=== PATIENT | female | born 2000 | race American Indian/Alaskan Native ===

== ENCOUNTER 2021-04-05 09:59 | Inpatient (IN) | payer OTHER ==
[2021-04-05] MEDS ORDERED: LOPERAMIDE 2 MG CAP PO PRN (11:00)
[2021-04-05] MEDS ORDERED: TERBUTALINE 1 MG/1 ML INJ SUB-Q PRN (11:00)
[2021-04-05] MEDS ORDERED: METHYLERGONOVINE MALEATE 0.2 MG/ML VIAL IM PRN (11:00)
[2021-04-05] MEDS ORDERED: miSOPROStol 200 MCG TAB PR PRN (11:00)
[2021-04-05] MEDS ORDERED: AMPICILLIN/NS 2 GM/100 ML 2 GM/100 ML BAG IV ONE (11:00)
[2021-04-05] MEDS ORDERED: CARBOPROST TROMETHAMINE 250 MCG/1 ML INJ IM PRN (11:00)
[2021-04-05] MEDS ORDERED: OXYTOCIN DRIP 30 UNITS/500 ML BAG IV SCH ×2 (11:00)
[2021-04-05] MEDS ORDERED: ePHEDrine SULFATE 50 MG/1 ML INJ IV PRN ×2 (11:00→15:53)
[2021-04-05] MEDS ORDERED: MINERAL OIL 30 ML ORAL LIQD PO PRN (11:00)
[2021-04-05] MEDS ORDERED: LIDOCAINE (2%) 20 MG/1 ML VIAL 20 ML MDV INFILTRATI ONE (11:00)
[2021-04-05] MEDS ORDERED: fentaNYL 100 MCG/2 ML INJ IV PRN (11:00)
[2021-04-05] MEDS ORDERED: OXYTOCIN 10 UNIT/1 ML INJ IM PRN (11:00)
--- NOTE | 2021-04-05 11:06 | History and Physical Report ---
History of Present Illness Date of examination: 04/05/21 Date of admission: 04/05/21 Chief complaint: Contractions, leaking of water History of present illness: 20 year old presents to L&D with complaint of contractions and leaking of water since early this morning. Denies vaginal bleeding. Reports active movement. Patient states her due date is April 16, 2021. Patient states she receives care at [facility] but records are not available. She denies any complications during the . labs drawn upon admission since no records are available. Past History Past Medical History: no pertinent history Past Surgical History: no surgical history [employer] History: denies: abnormal PAP smear, chlamydia, gonorrhea, hepatitis B, hepatitis C, herpes, HIV, syphilis, trichomonas Family/Genetic History: diabetes, hypertension, stroke Social history: single, lives with family, full code. denies: smoking, alcohol abuse, prescription drug abuse, IV drug use - Obstetrical History Expected Date of Delivery: 04/16/21 Actual Gestation: 38 Week(s) 3 Day(s) : 1 Para: 0 Hx # Term Pregnancies: 0 Number of Pregnancies: 0 Spontaneous Abortions: 0 Induced : 0 Number of Living Children: 0 Medications and Allergies Allergies Allergy/AdvReac Type Severity Reaction Status Date / Time No Known Allergies Allergy Unverified 03/22/21 19:56 Active Meds: Active Medications Carboprost Tromethamine (Carboprost Tromethamine 250 Mcg/1 Ml Inj) 250 mcg IM ONCE PRN PRN Reason: Uterine Bleeding Ephedrine Sulfate (Ephedrine Sulfate 50 Mg/1 Ml Inj) 10 mg IV Q2M PRN PRN Reason: Hypotension Fentanyl (Fentanyl 100 Mcg/2 Ml Inj) 100 mcg IV Q2H PRN PRN Reason: Pain,Severe (7-10) LABOR PAIN Oxytocin/Sodium Chloride (Pitocin/Ns 30 Unit/500ml) 30 units in 500 mls @ 2 mls/hr IV TITR OLLIE; Protocol Lactated Ringer's (Lactated Ringers) 1,000 mls @ 125 mls/hr IV DIRECT OLLIE Oxytocin/Sodium Chloride (Pitocin/Ns 30 Unit/500ml) 30 units in 500 mls @ 40 mls/hr IV TITR OLLIE; Protocol Ampicillin Sodium (Ampicillin/Ns 2 Gm/100 Ml) 2 gm in 100 mls @ 100 mls/hr IV ONCE ONE; Protocol Stop: 04/05/21 11:59 Ampicillin Sodium (Ampicillin/Ns 1 Gm/50 Ml) 1 gm in 50 mls @ 100 mls/hr IV Q4H OLLIE; Protocol Loperamide HCl (Loperamide 2 Mg Cap) 2 mg PO ONCE PRN PRN Reason: give with Hemabate Methylergonovine Maleate (Methylergonovine Maleate 0.2 Mg/Ml Vial) 0.2 mg IM ONCE PRN PRN Reason: Uterine Bleeding Mineral Oil (Mineral Oil 30 Ml Oral Liqd) 30 ml PO QHS PRN PRN Reason: Constipation Misoprostol (Misoprostol 200 Mcg Tab) 800 mcg [place] ONCE PRN PRN Reason: Uterine Bleeding Oxytocin (Oxytocin 10 Unit/1 Ml Inj) 10 unit IM ONCE PRN PRN Reason: Uterine Bleeding Terbutaline Sulfate (Terbutaline 1 Mg/1 Ml Inj) 0.25 mg SUB-Q ONCE PRN PRN Reason: Hyperstimulation/Hypertonicity Review of Systems All systems: negative (contractions, leaking of water from vagina) - Vital Signs Vital signs: Vital Signs Pulse Pulse Ox 111 H 100 04/05/21 10:24 04/05/21 10:24 Temp Pulse Resp BP Pulse Ox 98.4 F 117 H 18 106/59 100 04/05/21 10:25 04/05/21 11:04 04/05/21 10:25 04/05/21 10:35 04/05/21 11:04 - Physical Exam Abdomen: Positive: normal appearance, soft. Negative: distention, tenderness, guarding, rigidity Genitourinary (Female): Positive: normal external genitalia, normal perenium. Negative: perineal/vulvar lesions Vagina: Positive: other (moderate amount of clear amniotic fluid noted) Uterus: Positive: enlarged. Negative: tender Extremities: Positive: normal - Obstetrical FHR: category 1 Cervical Dilatation: 3 Cervical Effacement Percentage: 80 station: 0 Uterine Contraction Pattern: Irregular Uterine Contraction Intensity: Mild Results Result Diagrams: 04/05/21 11:39 All other labs normal. Assessment and Plan A: at 38 weeks, 3 days gestation. Spontaneous rupture of membranes. Early labor. GBS unknown. No records available. P: Admit. Continuous EFM. GBS prophylaxis. Draw labs. Request records. Augment labor with Pitocin.
[2021-04-05] MEDS: LACTATED RINGERS 1,000 ML IV SCH ×2 (11:20→17:28)
[2021-04-05 11:58] LABS: Hematocrit 27.7 % (30.3-42.9); Hemoglobin 9.5 gm/dl (10.1-14.3); Mean Corpuscular HGB Conc 34 % (30-34); Mean Corpuscular Volume 83 fl (79-97); Platelet Count 202 K/mm3 (140-440); Red Blood Count 3.35 M/mm3 (3.65-5.03); Red Cell Distribution Width 14.3 % (13.2-15.2)
[2021-04-05 12:30] LABS: Hepatitis C Virus Antibody Non-Reactive (NonReactive)
[2021-04-05] MEDS ORDERED: NalbUPHINE 10 MG/1 ML INJ IV PRN (15:53)
[2021-04-05] MEDS ORDERED: ONDANSETRON 4 MG/2 ML INJ IV PRN (15:53)
[2021-04-05] MEDS ORDERED: diphenhydrAMINE 50 MG/ML VIAL IV PRN (15:53)
[2021-04-05] MEDS ORDERED: NALOXONE 2 MG/2 ML INJ IV PRN (15:53)
[2021-04-05] MEDS ORDERED: AMPICILLIN/NS 1 GM/50 ML 1 GM/50 ML BAG IV SCH (16:00)
--- NOTE | 2021-04-05 16:16 | Anesthesia Consultation ---
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
--- NOTE | 2021-04-05 16:17 | Progress Note ---
Labor Epidural - Labor Epidural Start Time: 16:00 Stop Time: 16:16 Performed by:: RO CAR (Mariaa Fraga [facility]) Procedure: Patient is requesting epidural for labor and pain. H&P, labs were reviewed. Patient IDed, H&P reviewed, all questions and concerns were answered, and consent was signed. Timeout was performed at bedside. Patient in sitting position. Sterile prep and drape was performed. 3ml of 1% lidocaine skin wheal at L[3]- L [4]. 18-gauge cristel epidural needle was advanced to loss of resistance with air technique 6cm. Negative CSF negative blood. Epidural catheter advanced to [12] centimeters. [negative] Aspiration [negative] test dose. Sterile dressing applied. Patient tolerated procedure.
[2021-04-05] MEDS ORDERED: LACTATED RINGERS 250 ML IV SOLN IV ONE (16:53)
[2021-04-05] MEDS ORDERED: fentaNYL-BUPIV 2 MCG/ML-0.125% 200 MCG/100 ML BAG EPIDURAL SCH (17:00)
[2021-04-05 18:18] LABS: Bilirubin,Urine NEG (Negative); Blood,Urine NEG (Negative); Color,Urine Yellow (Yellow); Mucus,Urine FEW /HPF; Protein,Urine <15 mg/dL mg/dL (Negative); Urobilinogen,Urine < 2.0 mg/dL (<2.0)
[2021-04-05 18:37] LABS: Amphetamine Screen,Urine Negative; Benzodiazepines Screen,Urine Negative; Cannabinoid Screen,Urine Negative; Cocaine Screen,Urine Negative; Methadone Screen,Urine Negative; Opiate Screen,Urine Negative
[2021-04-05] MEDS ORDERED: WITCH HAZEL/ GLYCERIN PAD TP PRN (23:27)
[2021-04-05] MEDS ORDERED: LANOLIN/ZINC/DIMETHICONE (LANSINOH) 7 GM TP PRN (23:27)
[2021-04-05] MEDS ORDERED: MAGNESIUM HYDROXIDE (MOM) ORAL LIQD UDC PO PRN (23:27)
--- NOTE | 2021-04-05 23:59 | Procedure Note ---
OB Delivery Note - Delivery Date of Delivery: 04/05/21 Surgeon: NETTIE DIAS Estimated blood loss: other (250 cc) - Vaginal Delivery presentation: vertex Delivery position: OA Delivery induction: none Delivery monitor: external FHT, external uterine Route of delivery: Delivery placenta: spontaneous Delivery cord: 3 umbilical vessels Episiotomy: none Delivery laceration: 1st degree Delivery repair: vicryl Anesthesia: epidural Delivery comments: Spontaneous vaginal delivery at 22:09 of liveborn male weighing 6 lb. 11 oz. over 1st degree perineal laceration with apgars of 3/8. Loose nuchal cord times 1, manually reduced after delivery of head. was atraumatic. Baby placed skin to skin with mom immediately after ; 3 vessel cord double clamped and cut and baby was taken to radiant warmer and NICU called stat to room. Spontaneous delivery of intact placenta and membranes. EBL 250 cc. Pitocin to IV fluids after delivery of placenta. Perineal laceration repaired with vicryl suture in usual sterile fashion. Vaginal sweep negative. Sponge count correct. Mother and baby stable in birthing room.
[2021-04-06] MEDS ORDERED: ACETAMINOPHEN 325 MG TAB PO ONE (01:36)
[2021-04-06] MEDS: HYDROcodone/ACETAMINOPHEN 5-325 MG TAB PO PRN ×2 (05:35→16:43)
[2021-04-06] MEDS: DOCUSATE SODIUM 100 MG CAP PO SCH ×2 (09:52→22:40)
--- NOTE | 2021-04-06 10:46 | Progress Note ---
Assessment and Plan A: S/P Asymptomatic anemia p: Continue routine pp care Fe as prescribed D/c home tomm if stable Subjective - Subjective Date of service: 04/06/21 Principal diagnosis: s/p Patient reports: appetite normal, voiding normally, pain well controlled, ambulating normally [place]: doing well, bottle feeding Objective - Vital Signs Latest vital signs: Vital Signs Temp Pulse Resp BP BP Pulse Ox 04/06/21 07:48 98.0 F 106 H 20 101/62 95 04/06/21 05:39 98.1 F 108 H 18 103/61 100 04/05/21 23:49 111 H 100 04/05/21 23:48 107 H 114/61 04/05/21 23:44 107 H 100 04/05/21 23:39 106 H 100 04/05/21 23:34 106 H 100 04/05/21 23:33 106 H 110/57 04/05/21 23:29 102 H 100 04/05/21 23:24 118 H 98 04/05/21 23:19 116 H 121/74 100 04/05/21 23:14 111 H 100 04/05/21 23:09 108 H 100 04/05/21 23:04 111 H 128/59 100 04/05/21 22:59 123 H 100 04/05/21 22:54 110 H 100 04/05/21 22:49 109 H 100 04/05/21 22:48 122 H 126/61 04/05/21 22:44 109 H 100 04/05/21 22:39 102 H 98 04/05/21 22:36 99 H 110/55 04/05/21 22:34 106 H 100 04/05/21 22:29 106 H 100 04/05/21 22:24 120 H 100 04/05/21 22:19 105 H 100 04/05/21 22:14 119 H 100 04/05/21 22:09 157 H 100 04/05/21 22:04 149 H 100 04/05/21 21:59 170 H 100 04/05/21 21:54 137 H 100 04/05/21 21:49 149 H 100 04/05/21 21:44 152 H 100 04/05/21 21:39 123 H 100 04/05/21 21:34 136 H 100 04/05/21 21:29 119 H 99 04/05/21 21:24 122 H 100 04/05/21 21:21 101 H 63 L 04/05/21 21:19 114 H 100 04/05/21 21:14 87 100 04/05/21 21:09 96 H 99 04/05/21 21:06 101 H 0 L 04/05/21 21:04 93 H 98 04/05/21 21:01 93 H 96/63 04/05/21 20:59 89 97 04/05/21 20:55 107 H 93 04/05/21 20:54 98 H 98 04/05/21 20:52 91 H 90/60 04/05/21 20:49 105 H 98 04/05/21 20:46 88 04/05/21 20:44 96 H 98 04/05/21 20:41 101 H 90 04/05/21 20:39 98 H 99 04/05/21 20:34 25 L 87 04/05/21 20:29 98 H 98 04/05/21 20:28 105 H 88 04/05/21 20:24 92 H 100 04/05/21 20:21 80 92/55 04/05/21 20:19 85 100 04/05/21 20:14 96 H 99 04/05/21 20:09 118 H 99 04/05/21 20:04 91 H 99 04/05/21 19:59 91 H 100 04/05/21 19:54 95 H 100 04/05/21 19:52 81 112/66 04/05/21 19:49 99 H 100 04/05/21 19:44 87 100 04/05/21 19:39 91 H 100 04/05/21 19:34 80 100 04/05/21 19:30 97.8 F 04/05/21 19:29 80 100 04/05/21 19:24 75 95/56 100 04/05/21 19:19 80 98 04/05/21 19:14 77 100 04/05/21 19:09 81 100 04/05/21 19:04 82 100 04/05/21 19:01 75 103/58 04/05/21 18:59 100 H 99 04/05/21 18:54 76 100 04/05/21 18:49 87 99 04/05/21 18:45 108 H 100/59 04/05/21 18:44 101 H 100 04/05/21 18:39 114 H 98 04/05/21 18:34 89 100 04/05/21 18:30 96 H 101/66 04/05/21 18:29 86 100 04/05/21 18:24 90 99 04/05/21 18:19 89 100 04/05/21 18:17 89 108/66 04/05/21 18:14 103 H 100 04/05/21 18:09 108 H 99 04/05/21 18:04 96 H 100 04/05/21 18:00 84 103/57 04/05/21 17:59 91 H 99 04/05/21 17:54 91 H 99 04/05/21 17:50 88 100/59 04/05/21 17:49 81 99 04/05/21 17:45 90 91/57 04/05/21 17:44 83 98 04/05/21 17:39 87 98 04/05/21 17:34 82 98 04/05/21 17:30 81 100/55 04/05/21 17:29 85 98 04/05/21 17:24 81 98 04/05/21 17:19 91 H 100 04/05/21 17:15 82 104/58 04/05/21 17:14 85 100 04/05/21 17:13 82 110/62 04/05/21 17:11 90 110/60 04/05/21 17:09 87 113/62 100 04/05/21 17:07 96 H 113/62 04/05/21 17:05 75 113/62 04/05/21 17:04 90 100 04/05/21 17:03 101 H 106/58 04/05/21 17:01 76 117/67 04/05/21 17:00 97.8 F 75 16 117/67 04/05/21 16:59 83 126/82 100 04/05/21 16:57 77 108/62 04/05/21 16:55 88 98/60 04/05/21 16:54 99 H 100 04/05/21 16:53 101 H 87/53 04/05/21 16:51 86 90/58 04/05/21 16:49 88 100 04/05/21 16:48 88 87/56 04/05/21 16:45 101 H 93/54 04/05/21 16:44 93 H 100 04/05/21 16:40 86 109/55 04/05/21 16:39 100 H 100 04/05/21 16:34 115 H 100 04/05/21 16:31 93 H 108/54 04/05/21 16:29 111 H 100 04/05/21 16:25 100 H 95/51 04/05/21 16:24 117 H 100 04/05/21 16:22 118 H 96/52 04/05/21 16:19 109 H 100 04/05/21 16:15 107 H 120/59 04/05/21 16:14 109 H 100 04/05/21 16:09 110 H 100 04/05/21 16:06 105 H 136/61 04/05/21 16:04 115 H 100 04/05/21 16:02 110 H 92 04/05/21 15:59 102 H 100 04/05/21 15:55 110 H 144/84 04/05/21 15:54 109 H 100 04/05/21 15:52 84 93 04/05/21 15:48 110 H 100 04/05/21 15:43 113 H 100 04/05/21 15:38 109 H 100 04/05/21 15:33 101 H 100 04/05/21 15:28 111 H 100 04/05/21 15:23 108 H 99 04/05/21 15:18 106 H 100 04/05/21 15:13 109 H 100 04/05/21 15:08 107 H 100 04/05/21 15:03 107 H 99 04/05/21 14:58 111 H 100 04/05/21 14:53 107 H 100 04/05/21 14:48 99 H 100 04/05/21 14:43 109 H 100 04/05/21 13:31 98.3 F 100/60 04/05/21 13:29 93 H 100/60 04/05/21 12:09 97 H 100 04/05/21 12:05 85 91 04/05/21 12:04 84 92 04/05/21 11:59 100 H 99 04/05/21 11:54 106 H 100 04/05/21 11:49 97 H 99 04/05/21 11:44 104 H 99 04/05/21 11:39 102 H 99 04/05/21 11:34 95 H 100 04/05/21 11:29 103 H 100 04/05/21 11:24 95 H 100 04/05/21 11:19 96 H 100 04/05/21 11:14 116 H 99 04/05/21 11:09 133 H 100 04/05/21 11:04 117 H 100 04/05/21 10:59 110 H 99 04/05/21 10:54 110 H 99 04/05/21 10:49 119 H 99 Intake and Output 04/05/21 04/06/21 04/06/21 22:59 06:59 14:59 Intake Total 766.667 240 Output Total 1100 1000 Balance 766.667 -860 -1000 Intake: IV 766.667 Lactated Ringers 1,000 ml 766.667 @ 125 mls/hr IV DIRECT OLLIE Rx#:[id number] Intake, Free Water 240 Output: Urine 1100 1000 Indwelling Catheter 400 Void 700 1000 Other: Total, Output Amount 700 1000 # Voids Void 1 Estimated Blood Loss 200 - Exam Breasts: Present: normal Abdomen: Present: normal appearance, soft, normal bowel sounds Vulva: both: normal Uterus: Present: normal, firm, fundal height below umbilicus Extremities: Present: normal Incision: Present: normal, intact - Labs Labs: Abnormal lab results 04/05/21 Range/Units 11:39 RBC 3.35 L (3.65-5.03) M/mm3 Hgb 9.5 L (10.1-14.3) gm/dl Hct 27.7 L (30.3-42.9) %
[2021-04-06] MEDS: FERROUS SULFATE 325 MG TAB PO SCH ×2 (12:20→22:40)
[2021-04-06] MEDS: IBUPROFEN 600 MG TAB PO SCH ×2 (12:20→19:02)
--- NOTE | 2021-04-06 14:15 | Post Anesthesia Evaluation ---
- Post Anesthesia Evaluation Patient Participated: Yes Airway Patent: Yes Stable Respiratory Function: Yes Nausea/Vomiting: No Temp > 96.8F: Yes Pain Manageable: Yes Adequeate Hydration: Yes Anesthesia Complications: No Block Receding Appropriately: Yes
[2021-04-06 16:35] LABS: Hematocrit 27.6 % (30.3-42.9); Hemoglobin 8.9 gm/dl (10.1-14.3)
--- NOTE | 2021-04-07 08:59 | Discharge Summary ---
Providers - Providers Date of Admission: 04/05/21 11:00 Date of discharge: 04/07/21 Attending physician: TEZ ROBERTS MD Primary care physician: RUDI VICTORIA JR, MD Hospitalization Reason for admission: active labor, IUP at term Delivery: Episiotomy: none Laceration: 1st degree Incision: normal, intact Other procedures: none complications: none Discharge diagnosis: IUP at term delivered baby: male Hospital course: Pt was admitted to [facility] in active labor and had a w/o pp complications. See H&P, delivery summary, and pp note. Condition at discharge: Stable Disposition: DC-01 TO HOME OR SELFCARE Plan - Discharge Medications Prescriptions: Ferrous Sulfate [Feosol 325 MG tab] 325 mg PO BID #120 tablet Ibuprofen [Motrin 600 MG tab] 600 mg PO Q6HR #30 tablet - Provider Discharge Summary Activity: routine, no sex for 6 weeks, no heavy lifting 4 weeks, no strenuous exercise Diet: routine Instructions: routine Additional instructions: [] Smoking cessation referral if applicable(refer to patient education folder for contact #) [] Refer to [facility] Booklet Call your doctor immediately for: * Fever > 100.5 * Heavy vaginal bleeding ( >1 pad per hour) * Severe persistent headache * Shortness of breath * Reddened, hot, painful area to leg or breast * Drainage or odor from incision. * Keep incision clean and dry at all times and follow doctor's instructions regarding bathing/showering Advised foods high in Fe - Follow up plan Follow up: RUDI VICTORIA JR, MD [Primary Care Provider] - 6 Weeks
[2021-04-07] MEDS: DOCUSATE SODIUM 100 MG CAP PO SCH (10:46)
[2021-04-07] MEDS: FERROUS SULFATE 325 MG TAB PO SCH (10:46)
[2021-04-07] MEDS: IBUPROFEN 600 MG TAB PO SCH (12:39)
[2021-04-07 14:17] VITALS: BP 106/74
== END 2021-04-07 15:37 | disposition home or self-care (01) | DRG 775 ==
LOC: TRG 09:59 → APU 10:01 → TRG 11:23 → LD 12:16 → OB 04-06 00:58
PROC: 10E0XZZ Delivery of Products of Conception, External Approach (ICD-10-PCS; principal; 2021-04-05)
PROC: 3E0R3BZ Introduction of Anesthetic Agent into Spinal Canal, Percutaneous Approach (ICD-10-PCS; 2021-04-05)
PROC: 00HU33Z Insertion of Infusion Device into Spinal Canal, Percutaneous Approach (ICD-10-PCS; 2021-04-05)
PROC: 0HQ9XZZ Repair Perineum Skin, External Approach (ICD-10-PCS; 2021-04-05)
DX: O69.81X0 Labor and delivery complicated by cord around neck, without compression, not applicable or unspecified (principal); Z3A.38 38 weeks gestation of pregnancy; Z37.0 Single live birth; Z20.822 Contact with and (suspected) exposure to COVID-19; Z91.018 Allergy to other foods; O70.0 First degree perineal laceration during delivery; O90.81 Anemia of the puerperium; D64.9 Anemia, unspecified
CPT/HCPCS: 36415; 80307; 81001; 85014; 85018; 85027; 86592; 86706; 86762; 86803; 86850; 86900; 86901; 87086; 87806; 88307; 96368; G0378; J0290; J2405; J7120; U0003